=== PATIENT | female | born 1985 | race Caucasian/White ===

== ENCOUNTER 2019-10-24 15:41 | Emergency (ER) | payer MEDICAID, OTHER ==
[~2019-10-24] VITALS: Ht 167.6 cm; Wt 65.9 kg
[2019-10-24 15:44] VITALS: BP 135/81
[2019-10-24] MEDS ORDERED: HYDR30CR79 TOP (16:50)
== END 2019-10-24 17:00 | disposition home or self-care (01) ==
LOC: ER 15:41
DX: K64.4 Residual hemorrhoidal skin tags (principal); F17.200 Nicotine dependence, unspecified, uncomplicated; Z88.2 Allergy status to sulfonamides; Z79.899 Other long term (current) drug therapy
CPT/HCPCS: 99282

== ENCOUNTER 2019-10-25 19:16 | Emergency (ER) | payer MEDICAID, OTHER ==
[~2019-10-25] VITALS: Ht 320 cm; Wt 63.6 kg
[~2019-10-25 19:16] MED LIST: HYDR30CR79 TOP
[2019-10-25 20:28] VITALS: BP 137/92
[2019-10-25] MEDS ORDERED: HYDROcodone/acetaminophen 10/325mg tab PO ONE (20:35)
--- NOTE | 2019-10-25 21:13 | NUR ---
Note undone in ED - 10/25/19 at 2115 by CRIS Second moderate sedation perfomed with reduction of left wrist by Dr. Stuart, Orthopedist. Propofol used for sedation. Left wrist recasted after reduction by Dr. Stuart. Pt tolerated procedure well. Respiratory therapist in room for both procedures. Mother at bedside.
== END 2019-10-25 21:00 | disposition left against medical advice (07) ==
LOC: ER 19:17
DX: N89.8 Other specified noninflammatory disorders of vagina (principal); Z88.2 Allergy status to sulfonamides; Z79.899 Other long term (current) drug therapy
CPT/HCPCS: 99281; 99282